=== PATIENT | male | born 1985 ===

== ENCOUNTER 2025-04-01 09:23 | Outpatient (CLI) | payer BC, SELFPAY | END 2025-04-01 09:24 | disposition home or self-care (01) | PROVIDERS: PCP Registered Nurse; Visit Provider Registered Nurse | DX: M79.10 Myalgia, unspecified site (principal); R53.83 Other fatigue; M25.50 Pain in unspecified joint | CPT/HCPCS: 80053; 82728; 84443; 86140; 86376 ==